=== PATIENT | male | born 1980 | race Caucasian/White ===

== ENCOUNTER 2016-10-07 09:41 | Emergency (ER) | payer BC ==
[~2016-10-07] VITALS: Ht 167.6 cm; Wt 74.2 kg
[2016-10-07 10:45] VITALS: BP 144/86
== END 2016-10-07 11:06 | disposition home or self-care (01) ==
LOC: ED 09:41
DX: J20.9 Acute bronchitis, unspecified (principal)
CPT/HCPCS: J7613; J7644